=== PATIENT | male | born 1990 | race Caucasian/White ===

== ENCOUNTER 2017-09-03 14:25 | Emergency (ER) | payer OTHER ==
[2017-09-03] MEDS: ASPIRIN 325 MG TAB PO (16:05)
[2017-09-03 16:33] LABS: ADD MAN DIFF? NO
[2017-09-03 16:34] LABS: BASOPHILS % 0.4 % (0.0-2.0); EOSINOPHILS # 0.1 10^3/ul (0.0-0.5); EOSINOPHILS % 2.1 % (0.0-7.0); HEMATOCRIT 45.6 % (42.0-52.0); HEMOGLOBIN 15.6 g/dl (14.0-18.0); LYMPHOCYTES # 2.3 10^3/ul (0.8-2.9); LYMPHOCYTES % 42.5 % (15.0-51.0); MEAN CORPUSCULAR HEMOGLOBIN 30.9 pg (29.0-33.0); MEAN CORPUSCULAR HGB CONC 34.2 g/dl (32.0-37.0); MEAN CORPUSCULAR VOLUME 90.3 fl (82.0-101.0); MEAN PLATELET VOLUME 10.5 fl (7.4-10.4); MONOCYTE # 0.4 10^3/ul (0.3-0.9); MONOCYTES % 8.2 % (0.0-11.0); NEUTROPHIL # 2.5 10^3/ul (1.6-7.5); NEUTROPHILS % 46.6 % (39.0-77.0); PLATELET COUNT 160 10^3/UL (140-415); RED BLOOD COUNT 5.05 10^6/ul (4.70-6.10); RED CELL DISTRIBUTION WIDTH 11.7 % (11.5-14.5)
[2017-09-03 16:34] LABS: WHITE BLOOD COUNT 5.4 10^3/ul (4.8-10.8)
[2017-09-03 16:52] LABS: ANION GAP 21 (8-16); BLOOD UREA NITROGEN 11 mg/dl (7-20); CALCIUM 9.2 mg/dl (8.4-10.2); CARBON DIOXIDE 28 mmol/L (21-31); CHLORIDE 103 mmol/L (97-110); CREATININE 0.86 mg/dl (0.61-1.24); GLUCOSE 91 mg/dl (70-220); POTASSIUM 4.1 mmol/L (3.5-5.1); SODIUM 148 mmol/L (135-144)
[2017-09-03 17:04] LABS: B-TYPE NATRIURETIC PEPTIDE 40 PG/ML (0-125)
[2017-09-03 17:15] LABS: TROPONIN-I < 0.012 ng/ml (0.00-0.12)
== END 2017-09-03 19:03 | disposition home or self-care (01) ==
LOC: E/R 14:25
DX: R07.9 Chest pain, unspecified (principal); Z95.0 Presence of cardiac pacemaker
CPT/HCPCS: 36415; 71045; 80048; 83880; 84484; 85025; 93005; 99285-25